=== PATIENT | male | born 1955 | race Caucasian/White ===

== ENCOUNTER 2016-09-17 09:58 | Emergency (ER) | payer MEDICAID ==
[~2016-09-17] VITALS: Ht 180.3 cm; Wt 87.0 kg
[2016-09-17 09:59] VITALS: BP 121/82
== END 2016-09-17 11:16 | disposition home or self-care (01) ==
LOC: ED 11:08
DX: R21 Rash and other nonspecific skin eruption (principal); I10 Essential (primary) hypertension; F19.10 Other psychoactive substance abuse, uncomplicated
CPT/HCPCS: 99283

== ENCOUNTER 2016-10-27 14:53 | Emergency (ER) | payer MEDICAID ==
[~2016-10-27] VITALS: Ht 180.3 cm; Wt 87.7 kg
[2016-10-27 14:54] VITALS: BP 125/87
== END 2016-10-27 16:05 | disposition home or self-care (01) ==
LOC: ED 15:30
DX: R21 Rash and other nonspecific skin eruption (principal); I10 Essential (primary) hypertension
CPT/HCPCS: 99283

== ENCOUNTER 2017-07-26 15:34 | Emergency (ER) | payer MEDICAID ==
[~2017-07-26] VITALS: Ht 180.3 cm; Wt 91.2 kg
[2017-07-26 15:42] VITALS: BP 134/86
== END 2017-07-26 16:26 | disposition home or self-care (01) ==
LOC: ED 15:45
DX: S29.011A Strain of muscle and tendon of front wall of thorax, initial encounter (principal); J44.9 Chronic obstructive pulmonary disease, unspecified; I10 Essential (primary) hypertension; F17.200 Nicotine dependence, unspecified, uncomplicated; W01.0XXA Fall on same level from slipping, tripping and stumbling without subsequent striking against object, initial encounter; Y93.89 Activity, other specified; Y92.488 Other paved roadways as the place of occurrence of the external cause; Y99.8 Other external cause status; Z90.49 Acquired absence of other specified parts of digestive tract
CPT/HCPCS: 99284